=== PATIENT | female | born 1940 | race African-American/Black ===

== ENCOUNTER 2018-11-26 15:18 | Emergency (ER) | payer MEDICARE, MEDICAID ==
[~2018-11-26] VITALS: Ht 167.6 cm; Wt 73.0 kg
[~2018-11-26 15:18] MED LIST: ALLO100T PO; CALC1TAB59; COLC0.6T66 PO; CYCL30DR BOTHEYE; KETO15CR; LOSA1TAB34 PO; METF500T PO; MONT10TA21 PO; OMEP20CA5 PO; POTA8TAB4 PO; SIMV10TA6 PO
[2018-11-26] MEDS ORDERED: SODIUM CHLORIDE 0.9% 1,000 ML IV ONE (15:38)
[2018-11-26 16:11] LABS: BASOPHILS % 0.6 % (0.0-2.0); EOSINOPHILS % 0.1 % (0.0-5.0); HEMATOCRIT. 36.2 % (36.0-48.0); HEMOGLOBIN. 12.1 g/dL (12.0-16.0); LYMPHOCYTES % 45.6 % (20.0-50.0); MEAN CORPUSCULAR HEMOGLOBIN 26.7 pg (28.0-32.0); MEAN PLATELET VOLUME 7.6 fl (7.4-10.4); MONOCYTES % 7.9 % (2.0-8.0); NEUTROPHILS % 45.8 % (40.0-76.0); PLATELET 250 x1000/uL (130-400); RED BLOOD CELL COUNT 4.53 mill/uL (4.2-5.4); RED CELL DISTRIBUTION WIDTH 15.4 % (11.6-14.6)
[2018-11-26 16:16] LABS: INR 1.2; PROTHROMBIN TIME 12.4 sec (9.6-11.0)
[2018-11-26 16:51] LABS: CHLORIDE 107 mEq/L (98-107)
[2018-11-26 17:01] LABS: CLARITY URINE CLOUDY (CLEAR); COLOR URINE YELLOW (YELLOW); KETONES URINE NEGATIVE (NEGATIVE); LEUKOCYTE ESTERASE URINE 3+ (NEGATIVE); NITRITE URINE NEGATIVE (NEGATIVE); OCCULT BLOOD URINE NEGATIVE (NEGATIVE); PROTEIN URINE NEGATIVE (NEGATIVE); SPECIFIC GRAVITY URINE 1.016 (1.005-1.030)
[2018-11-26] MEDS ORDERED: LEVOFLOXACIN 500MG PREMIX 100 ML IV ONE (18:00)
[2018-11-26 20:07] VITALS: BP 142/81
== END 2018-11-26 20:08 | disposition left against medical advice (07) ==
LOC: ER 15:18 → EDBEDREQTM 18:09 → EDBEDREQ 18:09 → ER 20:08 → ENRESERV 11-27 07:08 → CANRESERV 11-27 07:08 → CANBEDREQ 11-27 15:59
DX: R55 Syncope and collapse (principal); N39.0 Urinary tract infection, site not specified; F03.90 Unspecified dementia, unspecified severity, without behavioral disturbance, psychotic disturbance, mood disturbance, and anxiety; E11.9 Type 2 diabetes mellitus without complications; I10 Essential (primary) hypertension; Z88.0 Allergy status to penicillin; Z88.6 Allergy status to analgesic agent; Z88.2 Allergy status to sulfonamides
CPT/HCPCS: 36415; 70450; 71045; 80053; 81003; 83880; 84484; 85025; 85610; 87086; 93005; 96361; 96365; 99284; J1956; J7030